=== PATIENT | male | born 1960 | race Caucasian/White ===

== ENCOUNTER 2019-02-14 20:14 | Inpatient (IN) | payer MEDICAID ==
[~2019-02-14] VITALS: Ht 185.4 cm; Wt 63.5 kg
[2019-02-14 20:18] VITALS: BP 113/67
--- NOTE | 2019-02-14 20:21 | NUR ---
TO LOBBY A/W BED AMBULATORY
--- NOTE | 2019-02-14 20:34 | NUR ---
PT AMBULATED TO BED #5.
--- NOTE | 2019-02-14 20:41 | NUR ---
58 Y/O M PRESENTS TO ED WITH C/O ELEVATED BLOOD SUGAR. PT REPORTS FALLIGN ASLEEP AT THE BUS STOP AND WAKING UP FEELING DISORIENTED. +POLYDIPSIA AND POLYURIA. PT DENIES DIZZINESS OR VISUAL CHANGES. PT AAOX4 TO PERSON, PLACE, SITUATION, AND TIME. SPEECH CLEAR AND COMPREHENISBLE. BEHAVIOR IS CALM. PT ATTACHED TO MONITORING SYSTEM. PT BED IN LOWEST POSTION. WILL CONTINUE TO MONITOR.
--- NOTE | 2019-02-14 21:05 | NUR ---
Adis luna in [facility] - 02/14/19 at 2145 by MEDGJ BLOOD DRAWN AND TAKEN TO LAB.
[2019-02-14] MEDS ORDERED: KETOROLAC 30 MG/ML VIAL IVP ONE (21:10)
[2019-02-14] MEDS ORDERED: NACL 0.9% 2,000 ML IV ONE (21:10)
--- NOTE | 2019-02-14 21:25 | NUR ---
BLOOD DRAWN AND TAKEN TO LAB
[2019-02-14 21:34] LABS: BASOPHILS % (AUTO) 0.8 % (0.0-2.0); EOSINOPHILS # (AUTO) 0.1 K/uL (0-0.4); EOSINOPHILS % (AUTO) 2.9 % (0.0-4.0); HEMATOCRIT 35.1 % (36-52); HEMOGLOBIN 11.4 g/dL (12.0-18.0); LYMPHOCYTES % (AUTO) 21.6 % (20.5-51.1); MEAN CORPUSCULAR HEMOGLOBIN 30 pg (27-31); MEAN CORPUSCULAR HGB CONC 32 g/dL (33-37); MEAN CORPUSCULAR VOLUME 91.8 fL (80-94); MONOCYTES # (AUTO) 0.4 K/uL (0.8-1.0); MONOCYTES % (AUTO) 9.6 % (1.7-9.3); NEUTROPHILS # (AUTO) 2.9 K/uL (1.8-7.7); NEUTROPHILS % (AUTO) 65.1 % (42.2-75.2); PLATELET COUNT (AUTO) 282 K/uL (140-450); RED BLOOD CELL COUNT(AUTO) 3.82 MIL/uL (4.20-6.10); WHITE BLOOD COUNT (AUTO) 4.5 K/uL (4.8-10.8)
[2019-02-14 21:55] LABS: ALBUMIN 2.8 g/dL (3.4-5.0); ANION GAP 17.9 (8-16); CARBON DIOXIDE 22.5 mmol/L (21-32); POTASSIUM 4.4 mmol/L (3.5-5.1); TOTAL BILIRUBIN 0.3 mg/dL (0.0-1.0)
[2019-02-14] MEDS ORDERED: INSULIN REGULAR, HUMAN 100 UNIT in NACL 0.9% 100 ML IV ONE ×2 (22:05)
--- NOTE | 2019-02-14 22:08 | NUR ---
PT SEEN WITH EYES CLOSES. VISIBLE CHEST RISE AND FALL NOTED. WILL CONTINUE TO MONITOR.
[2019-02-14] MEDS ORDERED: HUM SUBQ (22:33)
[2019-02-14] MEDS ORDERED: INSU100S22 SUBQ (22:33)
[2019-02-14] MEDS ORDERED: NACL 0.9% 1,000 ML IV SCH (22:53)
[2019-02-14] MEDS ORDERED: ACETAMINOPHEN 325 MG TAB PO PRN (22:55)
[2019-02-14] MEDS ORDERED: DOCUSATE SODIUM 100 MG GELCAP PO PRN (22:55)
[2019-02-14] MEDS ORDERED: ONDANSETRON 4 MG/2 ML VIAL IM/IVP PRN (22:55)
[2019-02-14] MEDS ORDERED: LORazepam 2 MG/ML VIAL IM/IVP PRN (22:55)
[2019-02-14] MEDS ORDERED: ZOLPIDEM 5 MG TAB PO PRN (22:55)
[2019-02-14] MEDS ORDERED: DEXTROSE 50% 50 ML SYR IVP PRN (23:00)
[2019-02-14] MEDS ORDERED: INSULIN REGULAR, HUMAN 100 UNIT in NACL 0.9% 100 ML IV SCH ×2 (23:00)
[2019-02-14] MEDS ORDERED: NACL 0.9% 1,000 ML IV ONE (23:00)
--- NOTE | 2019-02-14 23:14 | NUR ---
Patient will be admitted to care of Dr. Mireles. Admited to ICU. Will go to room 2. Belongings list completed. VSS at time of transport Report to AMADO Mcfarlane. Transfer of care at this time.
[2019-02-14] MEDS ORDERED: VANCOMYCIN PER PHARMACY MC PRN (23:15)
--- NOTE | 2019-02-14 23:20 | NUR ---
PATIENT TRANSFERRED TO ICU BED 2 VIA GURNEY, PATIENT ABLE TO AMBULATE TO BED. WILL FOLLOWUP CARE
[2019-02-14] MEDS: BLOOD GLUCOSE MONITORING 1 DEV DEV FS SCH (23:30)
--- NOTE | 2019-02-14 23:30 | NUR ---
RECEIVED ENDORSEMENT FROM ER NURSE AT BEDSIDE. PATIENT LETHARGIC, GOES IN AND OUT OF ALERT TO LETHARGIC. ABLE TO FOLLOW SOME SIMPLE COMMANDS, OPENS EYES TO VOICE AND PAIN. WITHDRAWS TO PAIN, ANOx3. PATIENT IS ON ROOM AIR, SATURATIONS 96%, HEART RATE 69BPM, BLOOD PRESSURE 115/74, RESPIRATIONS 12. PATIENT DENIES PAIN. RIGHT AC PERIPHERAL IV, 20G, FLUSHED AND PATENT, WITHOUT SYMPTOMS. INSULIN DRIP INFUSING AT 8 UNITS/HR. BLOOD SUGAR AT THIS TIME 552. PATIENT IS AFEBRILE, SKIN WARM AND DRY BUT NOT INTACT. MULTIPLE SMALL PURULENT WOUNDS NOTED ON BILATERAL FOREARMS. CULTURES OBTAINED AND WOUNDS ARE PHOTOGRAPHED AND CHARTED. NONADHESIVE DRESSINGS APPLIED AND KERLIX ROLL IN PLACE. BOWEL SOUNDS ACTIVE, ABDOMEN SOFT AND NONTENDER. PATIENT IS CONTINENT, URINAL AT BEDSIDE. PATIENT ORIENTED TO CALL LIGHT AND TREATMENT PLAN. SIDERAILS UPX3, BED LOCKED AND IN LOW POSITION. WILL FOLLOW UP ON ADMITTING ORDERS
--- NOTE | 2019-02-14 23:45 | NUR ---
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 PATIENT ALSO REFUSED RN TO ASSESS SKIN ON BACK AND SACRUM, NOT ABLE TO ASSESS FOR INJURIES/SKIN BREAKDOWN
[2019-02-14 23:48] LABS: PROTHROMBIN TIME 8.5 secs (10.8-13.4)
[2019-02-14 23:51] LABS: MAGNESIUM 1.7 mg/dL (1.8-2.4); PHOSPHORUS 3.9 mg/dL (2.5-4.9); THYROID STIMULATING HORMONE 0.73 uIU/mL (0.34-3.74)
[2019-02-15] VITALS (12 sets, daily range): BP systolic 99–129; BP diastolic 49–84
--- NOTE | 2019-02-15 00:02 | NUR ---
phone call from after hour pharmacist Lorraine, she wants to verify lantus 30 units order.phone call made to dr ramirez; he said to give lantus 30 units even if pt is on regular insulin drip, pharmacist made aware.
[2019-02-15] MEDS: BLOOD GLUCOSE MONITORING 1 DEV DEV FS SCH ×11 (00:14→20:15)
--- NOTE | 2019-02-15 00:15 | NUR ---
PATIENT EDUCATED ON IMPORTANCE OF STARTING MAINTENANCE IV FLUIDS AND IV ANTIBIOTICS. PATIENT MADE AWARE THAT THE IV LINE ALREADY IN PLACE IS ONLY FOR THE INSULIN DRIP AND CANNOT BE MIXED WITH OTHER FLUIDS OR MEDICATION. RN ATTEMPTS TO START ANOTHER IV LINE AND PATIENT REFUSES, STATES RN CAN TRY INSERTION IN THIRTY MINUTES ONCE PATIENT HAS "RESTED FOR SOME TIME". WILL ATTEMPT IV INSERTION IN 30 MINUTES
[2019-02-15] MEDS: INSULIN LANTUS 100 UNITS/ML 10 ML VIAL SUBQ SCH ×2 (00:29→20:21)
[2019-02-15] MEDS ORDERED: VANCOMYCIN 1,000 MG VIAL ONE (00:40)
--- NOTE | 2019-02-15 00:41 | NUR ---
CALLED PHARMACY TO VERIFY IF POSSIBLE TO SWITCH IV LINE TO Y-PORT OR DOUBLE LUMEN. PHARMACISTS CLARIFIES THAT IT IS NOT OK TO MIX ANY FLUIDS OR MEDICATIONS WITH INSULIN DRIP REGARDLESS OF SEPARATE PORTS. WILL TRY TO START ANOTHER IV ACCESS IF PATIENT ALLOWS
--- NOTE | 2019-02-15 00:44 | NUR ---
UPON ARRIVING AT BEDSIDE AND EXPLAINING THE SIGNIFICANT AND PROCEDURE OF DRAWING ABG TO THE PT, PT TOLD RT TO COME BACK IN 30 MINUTES. WHEN RT RETURNED IN 30 MINUTES AND EXPLAINED THE THE IMPORTANCE OF DRAWING THE ABG, PT REFUSED THE PROCEDURE. RUBÉN SWARTZ WAS NOTIFIED. RNs AT BEDSIDE. PT IS ON ROOM AIR WITH SPO2 OF 96%, HR 67, AND RR 14bpm.
[2019-02-15] MEDS ORDERED: VANCOMYCIN 1GM/DEXT 5% PREMIX 200 ML IV SCH (01:00)
--- NOTE | 2019-02-15 01:07 | NUR ---
bs 360; continue 8 units insulin drip as per dr ramirez.also made aware that pt is refusing ivf and iv antibiotics.
--- NOTE | 2019-02-15 01:10 | NUR ---
ATTEMPTED NEW IV INSERTION, PATIENT REFUSING, PATIENT NOW REFUSING ANY KIND OF TREATMENT. RESIDENT DOCTOR MADE AWARE. RESIDENT DOCTOR AT BEDSIDE TO EXPLAIN THE IMPORTANCE OF FLUIDS AND ANTIBIOTICS, PATIENT IS UNCOOPERATIVE, WILL NOT OPEN EYES, YELLING AT STAFF TO LEAVE HIM ALONE AND DO NOT TOUCH HIM OR GO NEAR HIM WITH ANY KIND OF NEEDLES/EQUIPMENT. PATIENT DOES NOT WANT ANYTHING BUT TO BE LEFT ALONE. INSULIN DRIP STILL INFUSING AT 8 UNITS/HR.
--- NOTE | 2019-02-15 03:10 | NUR ---
bs 159; pt still refusing iv insertion; as per dr ramirez; stop insulin and admin d5 1/2 ns and monitor blood sugar level every hour. called lab to draw bmp. laborer cook house at bedside at this time.
[2019-02-15] MEDS ORDERED: DEXT 5% / NACL 0.45% 1,000 ML IV SCH (03:11)
[2019-02-15 03:39] LABS: ANION GAP 14.3 (8-16); CARBON DIOXIDE 24.4 mmol/L (21-32); CREATININE 0.7 mg/dL (0.7-1.3); POTASSIUM 3.7 mmol/L (3.5-5.1)
[2019-02-15 03:49] LABS: MAGNESIUM 1.4 mg/dL (1.8-2.4); PHOSPHORUS 2.8 mg/dL (2.5-4.9)
[2019-02-15 04:15] LABS: BASOPHILS % (AUTO) 0.8 % (0.0-2.0); EOSINOPHILS # (AUTO) 0.3 K/uL (0-0.4); EOSINOPHILS % (AUTO) 4.5 % (0.0-4.0); HEMATOCRIT 33.8 % (36-52); HEMOGLOBIN 11.5 g/dL (12.0-18.0); LYMPHOCYTES # (AUTO) 1.8 K/uL (2.0-11.5); LYMPHOCYTES % (AUTO) 30.7 % (20.5-51.1); MEAN CORPUSCULAR HEMOGLOBIN 30 pg (27-31); MEAN CORPUSCULAR HGB CONC 34 g/dL (33-37); MEAN CORPUSCULAR VOLUME 88.2 fL (80-94); MONOCYTES # (AUTO) 0.6 K/uL (0.8-1.0); MONOCYTES % (AUTO) 9.8 % (1.7-9.3); NEUTROPHILS # (AUTO) 3.1 K/uL (1.8-7.7); NEUTROPHILS % (AUTO) 54.2 % (42.2-75.2); PLATELET COUNT (AUTO) 311 K/uL (140-450); RED BLOOD CELL COUNT(AUTO) 3.84 MIL/uL (4.20-6.10); RED CELL DISTRIBUTION WIDTH 13.7 % (11.6-13.7); WHITE BLOOD COUNT (AUTO) 5.7 K/uL (4.8-10.8)
--- NOTE | 2019-02-15 04:27 | NUR ---
BLOOD SUGAR 117, PER PROTOCOL TITRATE IV FLUIDS. D5 1/2 NS INFUSING AT 200 ML. ASSESSED FOR PAIN, PATIENT DENIES. WILL CONTINUE TO MONITOR
[2019-02-15] MEDS ORDERED: AMPICILLIN/SULBACTAM 3 GM VIAL ONE (04:40)
[2019-02-15] MEDS: AMPICILLIN/SULBACTAM 3 GM in NACL 0.9% 100 ML IV SCH ×3 (05:18→20:15)
[2019-02-15 05:35] LABS: CHOL/HDL RATIO 2.8 (1-4.5)
[2019-02-15] MEDS ORDERED: VANCOMYCIN 500 MG VIAL PO SCH (06:00)
[2019-02-15] MEDS ORDERED: MAGNESIUM OXIDE 400 MG TAB PO SCH (07:00)
--- NOTE | 2019-02-15 07:30 | NUR ---
RECEIVED PT FROM PM SHIFT RN.CONTACT ISOLATION DUE TO HX : MRSA NARES. BEDSIDE MONITOR SHOWS SB-SR, ( 55S-62S) PT DROWSY BUT ABLE TO FOLLOW COMMANDS. ON RA, NO S/S OF RESPIRATORY DISTRESS NOTED. PT HAS IV TO RIGHT AC RUNNING D5 1/2 NS AT 200 CC/HR. SITE INTACT AND PATENT. PT HAS WOUND TO BOTH UPPER EXTREMITIES WRAPPED WITH GAUZE. INTACT AND CLEAN. CALL LIGHT IN REACH, HOB ELEVATED 30 DEGREES WITH LOW BED POSITION. WILL CONTINUE TO MONITOR.
[2019-02-15] MEDS: NACL 0.9% 1,000 ML IV SCH ×2 (07:35→18:41)
[2019-02-15] MEDS ORDERED: VANCOMYCIN PER PHARMACY MC PRN (07:35)
[2019-02-15] MEDS ORDERED: MAG SULF 2000 MG/WATER PREMIX 100 ML IV ONE (07:50)
--- NOTE | 2019-02-15 07:51 | NUR ---
PATIENT HAS BEEN SCREENED AND CATEGORIZED HIGH NUTRITION RISK. PATIENT WILL BE SEEN WITHIN 1-2 DAYS OF ADMISSION. 02/15/19-02/16/[address]
[2019-02-15] MEDS ORDERED: VANCOMYCIN 1,000 MG in DEXTROSE 5% 250 ML IV ONE (08:30)
[2019-02-15] MEDS ORDERED: VANCOMYCIN 1GM/DEXT 5% PREMIX 200 ML IV ONE (09:00)
--- NOTE | 2019-02-15 09:20 | NUR ---
PT REFUSED INSULIN SLIDING SCALE. PT STATED " I DO NOT NEED IT". RISKS EXPLAINED , PT STILL REFUSED. PT ALSO REFUSED BEDSIDE MONITOR. EXPLAINED TO PT IF HE REFUSED MONITORING, I CAN NOT MONITOR HIS HEART BEAT, PT AGREED BUT PT REFUSED O2 SATS MONITORING.
[2019-02-15] MEDS: INSULIN LISPRO SLIDING SCALE 100 UNITS/ML VIAL SUBQ PRN ×4 (09:21→20:23)
[2019-02-15] MEDS: LACTOBACILLUS RHAMNOSUS GG 1 EACH CAP PO SCH (09:22)
[2019-02-15] MEDS: MORPHINE SULFATE 2 MG/ML SYR IVP PRN ×3 (09:50→20:08)
--- NOTE | 2019-02-15 10:30 | NUR ---
PT VOIDS 400 CC URINE.
--- NOTE | 2019-02-15 11:50 | NUR ---
02/15/19 RD INITIAL ASSESSMENT COMPLETED PLEASE REFER TO NUTRITION ASSESSMENT UNDER CARE ACTIVITY FOR ESTIMATED NUTRITIONAL NEEDS. RD RECOMMENDATIONS: 1. CONTINUE CCHO 60 GM DIET TOLERATED. 2. RECOMMEND ADDING GLUCERNA SHAKE TID TO OPTIMIZE NUTRITION INTAKE. 3. RD WILL F/U 3-5 DAYS; MODERATE RISK. KRYSTLE STEPHENS, RD
--- NOTE | 2019-02-15 12:00 | NUR ---
PT BS 390, NOTIFIED PT I NEED TO GIVE HIM INSULIN SUBQ, PT STATED HE DOES NOT NEED INSULIN. HE CAN JUST DRINK WATER TO DECREASE BS. EXPLAINED TO PT IF HE DOES NOT TAKE INSULIN, HIS BS MAY GO UP TO 400. PT AGREED TO TAKE UNITS 10 UNITS SUBQ.
[2019-02-15] MEDS: HYDROcodone/APAP 5/325 MG 1 TAB TAB PO PRN ×2 (12:05→16:27)
--- NOTE | 2019-02-15 13:40 | NUR ---
TRANSFERRED PT TO TELE 115 . PT AWAKE, ALERT. PT AMBULATE FROM HALLWAY TO HIS ROOM. NOTIFIED AMADO BERRY I DID NOT GIVE PT WOUND DRESSING CHANGE DUE TO PT WANTED TO BE DONE AFTER HE GOT MORPHINE WHICH IS DUE AT 1350.
--- NOTE | 2019-02-15 13:41 | NUR ---
RECEIVED PATIENT TRANSFER FROM ICU AND RECEIVED BEDSIDE REPORT FROM ICU NURSE MARIAM. PATIENT IS AAOX4. RESPIRATION EVEN AND UNLABORED ON RA. NO SIGNS OF DISTRESS NOTED. IV INTACT AND CLEAN, INFUSING PER MD ORDER. DRESSINGS ON BILATERAL ARMS NOTED, CLEAN AND INTACT, PATIENT STATED "I WANT TO CHANGE THEM AFTER I GET MY PAIN MED." APPLIED TELE MONITOR. FALL RISK PROTOCOL IN PLACE AND BED ALARM ACTIVATED. ORIENTED PATIENT TO THE ROOM, ON HOW TO USE THE CALL LIGHT, BED REMOTE, TV, TELEPHONE, AND LIGHTS, PATIENT VERBALIZED UNDERSTANDING. VITAL SIGNS TAKEN. SAFETY MEASURES IN PLACE. BED IN LOW POSITION AND CALL LIGHT WITHIN REACH. INSTRUCTED PATIENT TO USE THE CALL LIGHT FOR ANY ASSISTANCE AND PATIENT WAS AWARE.
--- NOTE | 2019-02-15 13:57 | NUR ---
PATIENT COMPLAINED 10/10 ON HIS ARMS BILATERALLY, ADMINISTERED PRN PAIN MED MORPHINE VIA IVP, MED EDUCATION PROVIDED TO PATIENT AND PATIENT TOLERATED WELL. PATIENT AWAKE AND WATCHING ON BED AT THIS TIME. NO SIGNS OF DISTRESS NOTED. TELE MONITOR ATTACHED. SAFETY MEASURES IN PLACE. BED IN LOW POSITION AND CALL LIGHT WITHIN REACH. INSTRUCTED PATIENT TO USE THE CALL LIGHT FOR ANY ASSISTANCE AND PATIENT WAS AWARE.
--- NOTE | 2019-02-15 14:05 | NUR ---
PROVIDED WOUND CARE ON BILATERAL ARMS. CLEANSED ARMS WITH NS AND PAT DRY. APPLIED ADAPTIC DRESSINGS AND ABD BAND, SECURED WITH KERLIX, PATIENT TOLERATED WELL. WOUND CARE EDUCATION PROVIDED TO PATIENT AND PATIENT VERBALIZED UNDERSTANDING. PATIENT AWAKE AND WATCHING TV ON BED AT THIS TIME. NO SIGNS OF DISTRESS NOTED. TELE MONITOR ATTACHED. SAFETY MEASURES IN PLACE. BED IN LOW POSITION AND CALL LIGHT WITHIN REACH. INSTRUCTED PATIENT TO USE THE CALL LIGHT FOR ANY ASSISTANCE AND PATIENT WAS AWARE.
--- NOTE | 2019-02-15 15:58 | NUR ---
PATIENT IS RESTING ON BED AT THIS TIME. AROUSABLE TO VOICE. NO SIGNS OF DISTRESS NOTED. TELE MONITOR ATTACHED. SAFETY MEASURES IN PLACE. FALL RISK PROTOCOL IN PLACE AND BED ALARM ACTIVATED. BED IN LOW POSITION AND CALL LIGHT WITHIN REACH. INSTRUCTED PATIENT TO USE THE CALL LIGHT FOR ANY ASSISTANCE AND PATIENT WAS AWARE.
--- NOTE | 2019-02-15 16:10 | NUR ---
DURING 1600 VITAL SIGNS ROUND, FOUND PATIENT CHANGED HIMSELF INTO HIS OWN [facility] AND SHORT. PATIENT SAID "I AM WATCHING THE [facility] FOOT[employer]ALL GAME, I HAVE TO BE IN THEIR SHIRT." PATIENT REFUSED TO CHANGED INTO THE HOSPITAL GOWN. PATIENT IS WATCHING TV AT THIS TIME. NO SIGNS OF DISTRESS NOTED. TELE MONITOR ATTACHED. SAFETY MEASURES IN PLACE. BED IN LOW POSITION AND CALL LIGHT WITHIN REACH. INSTRUCTED PATIENT TO USE THE CALL LIGHT FOR ANY ASSISTANCE AND PATIENT WAS AWARE.
--- NOTE | 2019-02-15 16:27 | NUR ---
PATIENT COMPLAINED 6/10 ON HIS ARMS BILATERALLY, HE FEELS RESTLESS, SQUEEZING, AND SEVERE. ADMINISTERED PRN PAIN MED, MED EDUCATION PROVIDED TO PATIENT AND PATIENT TOLERATED WELL. PATIENT AWAKE AND WATCHING ON BED AT THIS TIME. NO SIGNS OF DISTRESS NOTED. TELE MONITOR ATTACHED. SAFETY MEASURES IN PLACE. BED IN LOW POSITION AND CALL LIGHT WITHIN REACH. INSTRUCTED PATIENT TO USE THE CALL LIGHT FOR ANY ASSISTANCE AND PATIENT WAS AWARE.
--- NOTE | 2019-02-15 18:06 | NUR ---
PATIENT RECEIVED HIS DINNER TRAY, ADMINISTERED 6 UNITS OF HUMALOG FOR BLOOD GLUCOSE 293, MED EDUCATION PROVIDED TO PATIENT AND PATIENT VERBALIZED OK. PATIENT TOOK OUT A PILL AND ASKED "CAN YOU TELL ME WHAT KIND OF MEDICATION IS THAT? SOMEONE GAVE IT TO ME ON THE STREET." EXPLAINED TO PATIENT THAT I DONT KNOW WHAT PILL IS IT WITHOUT THE LABEL AND FOR PATIENT'S SAFETY, NO MED BY BEDSIDE. PATIENT WAS AWARE. COLLECTED PILL IN SPECIMEN JAR AND SENT TO PHARMACY. PATIENT IS HAVING DINNER ON BED AT THIS TIME. NO SIGNS OF DISTRESS NOTED. TELE MONITOR ATTACHED. SAFETY MEASURES IN PLACE. BED IN LOW POSITION AND CALL LIGHT WITHIN REACH. INSTRUCTED PATIENT TO USE THE CALL LIGHT FOR ANY ASSISTANCE AND PATIENT WAS AWARE.
--- NOTE | 2019-02-15 19:30 | NUR ---
ENDORSED PATIENT AT BEDSIDE TO SPINDLE CARVER NURSE FOR CONTINUITY OF CARE. PATIENT IS IN STABLE CONDITION. SAFETY MEASURES IN PLACE.
--- NOTE | 2019-02-15 19:31 | NUR ---
RECEIVED BEDSIDE REPORT FROM DAY RN. PATIENT IS AAOX4. RESPIRATION EVEN AND UNLABORED ON RA. NO SIGNS OF DISTRESS NOTED. IV INTACT AND CLEAN, INFUSING PER MD ORDER. DRESSINGS ON BILATERAL ARMS NOTED, CLEAN AND INTACT. FALL RISK PROTOCOL IN PLACE AND BED ALARM ACTIVATED. ORIENTED PATIENT TO THE ROOM, ON HOW TO USE THE CALL LIGHT, BED REMOTE, TV, TELEPHONE, AND LIGHTS, PATIENT VERBALIZED UNDERSTANDING. CONTACT ISOLATION FOR HX MRSA/NARES. SAFETY MEASURES IN PLACE. BED IN LOW POSITION AND CALL LIGHT WITHIN REACH. WILL ROUND FREQUENTLY
[2019-02-15] MEDS: VANCOMYCIN 1,000 MG in NACL 0.9% 250 ML IV SCH (20:15)
--- NOTE | 2019-02-15 20:15 | NUR ---
VITAL SIGNS ARE WITHIN NORMAL LIMITS. ADRIANNA MEDICATIONS GIVEN. BLOOD GLUCOSE 280 LANTUS AND SLIDING SCALE GIVEN PER ORDERS. MORPHINE FOR PAIN GIVEN. ALL SAFETY MEASURES ARE IN PLACE. CALL LIGHT IS WITHIN REACH. WILL ROUND FREQUENTLY
--- NOTE | 2019-02-15 20:30 | NUR ---
PATIENT REMOVED DRESSING OFF BOTH ARMS. ATTEMPT TO CLEAN AND REAPPLY PT REFUSED STATES, "NO ILL CLEAN THEM AND LEAVE OPEN. I DON'T WANT THEM COVERED." EXPLAINED TO PT THEY HAVE BEEN OOZING AND SHOULD BE COVERED D/T HIGH RISK OF INFECTION. PT REFUSED. WILL TRY AGAIN LATER.
--- NOTE | 2019-02-15 22:00 | NUR ---
PATIENT IS REFUSING TELE MONITOR. MD MADE AWARE. EXPLAIN THE REASON HE IS ON TELE MONITOR PT STILL REFUSED WILL TRY AGAIN LATER.
--- NOTE | 2019-02-15 22:30 | NUR ---
PATIENT WALKING AROUND UNIT. EDUCATED ON NEED TO STAY IN ROOM D/T CONTACT ISOLATION AND QUIET TIME PROTOCOL. WALKED PATIENT BACK INTO ROOM. HE VERBALIZED UNDERSTANDING.
[2019-02-16] VITALS: BP 110/84
[2019-02-16] MEDS: MORPHINE SULFATE 2 MG/ML SYR IVP PRN (00:13)
--- NOTE | 2019-02-16 00:13 | NUR ---
VSS, PRN MORPHINE GIVEN FOR EZE ARM PAIN 10/16. BLOOD SUGAR 165 ADMINISTERED HUMALOG PER SLIDING SCALE. CALL LIGHT IS WITHIN REACH. WILL CONTINUE TO MONITOR.
[2019-02-16] MEDS: INSULIN LISPRO SLIDING SCALE 100 UNITS/ML VIAL SUBQ PRN ×2 (00:28→21:33)
[2019-02-16] MEDS: BLOOD GLUCOSE MONITORING 1 DEV DEV FS SCH ×6 (00:33→20:00)
--- NOTE | 2019-02-16 01:02 | NUR ---
PT REFUSED WOUND CARE. EDUCATED PT TO KEEP WOUND CLEAN AND DRY VERBALIZED UNDERSTANDING. STATES, " I WANT THEM TO BREATH." PT REFUSING DRESSING. WOUNDS ARE CLEAN PROVIDED NS, GAUZE AND KERLIX AT BEDSIDE. WILL TRY AGAIN LATER.
[2019-02-16] MEDS: HYDROcodone/APAP 5/325 MG 1 TAB TAB PO PRN (02:58)
--- NOTE | 2019-02-16 03:14 | NUR ---
BLOOD SUGAR IS 71 SNACK AT BEDSIDE. NORCO GIVEN PRN. PATIENT REMOVED IV EDUCATED ON IMPORTANCE OF IV FOR IV ANTIBIOTICS. STATES HE DOES NOT NEED IF I KEEP INSISTING HE WILL LEAVE AMA. DOCTOR RON MADE AWARE. CALL LIGHT IS WITHIN REACH.
[2019-02-16 04:00] VITALS: BP 138/77
--- NOTE | 2019-02-16 04:00 | NUR ---
VITAL SIGNS ARE WITHIN NORMAL LIMITS. SAFETY MEASURES ARE IN PLACE.
[2019-02-16] MEDS: AMPICILLIN/SULBACTAM 3 GM in NACL 0.9% 100 ML IV SCH ×3 (04:01→21:00)
[2019-02-16] MEDS: NACL 0.9% 1,000 ML IV SCH ×2 (04:01→21:00)
--- NOTE | 2019-02-16 05:18 | NUR ---
PT STATES FEELS BLOOD SUGAR IS LOW. CHECKED 89. LEFT SNACK AT BEDSIDE. CALL LIGHT IS WITHIN REACH. WILL CONTINUE TO MONITOR
--- NOTE | 2019-02-16 06:40 | NUR ---
SECURITY WAS CALLED TO SEARCH PATIENTS BELONGINGS FOR TELE MONITOR. TELE BOX FOUND IN HIS BAG RETURN TO PRORATION CLERK.
--- NOTE | 2019-02-16 07:18 | NUR ---
GAVE BEDSIDE REPORT TO DAY RN. PT ENDORSED IN STABLE CONDITION.
--- NOTE | 2019-02-16 07:19 | NUR ---
Received report from medical imaging technician nurse. Pt is in bed in stable condition. Call light in reach.
[2019-02-16 08:00] VITALS: BP 138/88
[2019-02-16] MEDS: VANCOMYCIN 1,000 MG in NACL 0.9% 250 ML IV SCH ×2 (08:00→20:00)
--- NOTE | 2019-02-16 08:20 | NUR ---
Pt is repeatedly requesting dixon and sausage for breakfast. Pt says he wont eat unless he gets his dixon and sausage. Reported to charge nurse. Pt's blood sugar at 0800 was 70. Told patient that his diet was calculated as per his needs. Pt said he does not want any medications, and does not want any doctor or nurse in his room. Pt refused his medication. Pt refused vitals signs except blood pressure. Pt does not want any IV line.
[2019-02-16] MEDS: LACTOBACILLUS RHAMNOSUS GG 1 EACH CAP PO SCH (08:24)
--- NOTE | 2019-02-16 10:40 | NUR ---
Went to check on patient. As per EVS he was smoking in bathroom. Security was by his room. Security took away his cigar. Pt called law enforcement and complained that we are illegally searching his belongings without a search warrant. Security was in room when patient called police. Pt was also complaining that he was not given and pain medication. Pt said that he does not want anyone in the room. Pt is aggressive.
[2019-02-16 12:00] VITALS: BP 140/86
--- NOTE | 2019-02-16 12:00 | NUR ---
Pt's blood glucose was noted at 379. Pt refused insulin. Notified . Addendum: 02/16/19 at 1309 by Dave Johns RN Informed pt the risks and benefits of taking and not taking medication.
--- NOTE | 2019-02-16 14:45 | NUR ---
Checked patient in his room. Pt applied unknown solution to both hands. Solution was dark brown in color. Pt refused to answer any questions. Pt requested coffee but pt's blood sugar at 1200. Reported to warehouse packer. ordnance truck installation supervisor checked with patient. Pt refused to answer any questions.
--- NOTE | 2019-02-16 16:00 | NUR ---
Pt refused to take is vital signs and blood sugar check. Notified patient on the benefits and risks of not taking his vital signs and blood sugar meds. Charge nurse and Dr Judd notified.
--- NOTE | 2019-02-16 18:24 | NUR ---
Pt is in room sitting in bed and eating his dinner. Requested patient to check his blood pressure and blood sugar. Patient once again refused. Pt requested that he be left alone. Pt has unknown brown solution by bedside. Pt refused all interventions today. Tried to explain risks and benefits of taking and not taking medications. Pt refused to talk or communicate. Dr Judd notified.
--- NOTE | 2019-02-16 19:27 | NUR ---
Shift report given to manufacturing inspector report. Pt was lying in bed. Call light in reach.
--- NOTE | 2019-02-16 19:28 | NUR ---
RECEIVED BEDSIDE REPORT FROM DAY SHIFT NURSE. RESPIRATION EVEN AND UNLABORED ON RA. NO SIGNS OF DISTRESS NOTED. NO IV SITE NOTED. PT REFUSED IV START. DRESSINGS ON BILATERAL ARMS NOTED, PT NOT ALLOW TO ASSESS. PT AMBULATORY, CONTACT ISOLATION FOR HX MRSA/NARES. SAFETY MEASURES IN PLACE. BED IN LOW POSITION AND CALL LIGHT WITHIN REACH. WILL ROUND FREQUENTLY
[2019-02-16 20:00] VITALS: BP 91/47
--- NOTE | 2019-02-16 20:30 | NUR ---
BS CHECKED, 330. WILL ADMINISTER INSULIN. Addendum: 02/16/19 at 2315 by Reyna Hays RN FOUND BEER BOTTLE IN RESTROOM, FOUND CHEWABLE TOBACCO, AND CONTAINER WITH UNKNOWN TABLETS. TOOK PICTURE AND REPORT DR. VELASQUEZ AND CHARGE NURSE, NAJMA. GIVEN ALL TO SECURITY. PT SLEEPING DEEP BUT AROUSABLE WHEN WAKING HIM UP.
[2019-02-16] MEDS: INSULIN LANTUS 100 UNITS/ML 10 ML VIAL SUBQ SCH (21:00)
--- NOTE | 2019-02-16 21:33 | NUR ---
GIVEN HUMALOG BASED ON SLIDING SCALE. PT REFUSED LANTUS, VANCOMYCIN, UNASYN, IV FLUID, AND IV START. EXPLAINED BENEFIT AND RISK 3TIMES, PT STILL REFUSED.
[2019-02-17] VITALS: BP 91/47
[2019-02-17] MEDS: BLOOD GLUCOSE MONITORING 1 DEV DEV FS SCH ×2 (00:10→04:00)
--- NOTE | 2019-02-17 00:15 | NUR ---
VS CHECKED, BP 91/47, BS CHECKED TWICE [address] VELASQUEZ AND GIVEN 2 PACKS OF ORANGE JUICE ORDERED D/T PT DOES NOT HAVE IV LINE AND REFUSED IV START. WILL MONITOR AGAIN.
--- NOTE | 2019-02-17 01:00 | NUR ---
LAB CALLED FOR MRSA AND URINE SAMPLE. PT REFUSED. RECHECKED BS, 95. PT IN STABLE CONDITION.
--- NOTE | 2019-02-17 02:30 | NUR ---
PT SLEEPING IN BED. NO ACUTE DISTRESS NOTED.
--- NOTE | 2019-02-17 04:00 | NUR ---
PT TAKING A SHOWER, TOLD PT IT IS TIME TO CHECK BS. PT STATES HE WILL BE STAY IN THERE FOR A WHILE.
--- NOTE | 2019-02-17 04:25 | NUR ---
PT IS DONE WITH SHOWER. PT REFUSED BS CHECK. EXPLAINED BENEFIT AND RISK 3 TIMES, PT STILL REFUSED.
[2019-02-17] MEDS: AMPICILLIN/SULBACTAM 3 GM in NACL 0.9% 100 ML IV SCH (05:00)
--- NOTE | 2019-02-17 05:26 | NUR ---
PT REFUSE UNASYN. EXPLAIN BENEFIT AND RISK 3TIMES, PT STILL REFUSED.
--- NOTE | 2019-02-17 07:05 | NUR ---
ENDORSED PT TO DAY SHIFT NURSE, PT IN STABLE CONDITION.
--- NOTE | 2019-02-17 07:20 | NUR ---
RECEIVED BEDSIDE REPORT FROM PM RN PT AWAKE STANDING AT BATHROOM SINK. PT APPEARS STABLE AND IN NO APPARENT DISTRESS. ALL SAFETY MEASURES ARE IN PLACE WILL CONTINUE TO MONITOR
[2019-02-17] MEDS ORDERED: INSU100S45 SUBQ (07:43)
[2019-02-17 08:00] VITALS: BP 137/73
--- NOTE | 2019-02-17 08:00 | NUR ---
PT REQUESTING CIGAR AND REQUESTING TO SPEAK WITH JEF AZAR VISOR. INFORMED JOHN FUCHSSHOP SUPERVISOR HE SPOKE WITH PT ABOUT HIS PLAN FOR DISCHARGE TODAY. AND PT WAS NOT HAPPY WITH THE PLAN CONSIDERING IT IS A HOLIDAY
--- NOTE | 2019-02-17 08:22 | NUR ---
ENTERED PT ROOM PT STATED HE CHANGED HIS MIND AND HE IS OK WITH HIS DISCHARGE TODAY IT WILL JUST TAKE SOME TIME TO ARRANGE FOR HIS FAMILY TO PICK HIM UP
--- NOTE | 2019-02-17 08:30 | NUR ---
WENT TO PT ROOM TO CHECK FINGERSTICK GLUCOSE PT IS REFUSING, EDUCATED PT ON THE IMPORTANCE OF CHECKING BLOOD SUGAR PT STILL REFUSED. WILL CONTINUE TO MONITOR
--- NOTE | 2019-02-17 09:14 | NUR ---
SPOKE WITH [facility] NO VANCO GIVEN PT ONLY RECEIVED 1 DOSE OF VANCO ON 02/15 AT NIGHT. PT IS REFUSING IV PT IS REFUSING ALL MEDICATIONS
[2019-02-17 09:17] VITALS: BP 137/73
--- NOTE | 2019-02-17 10:32 | NUR ---
PT. REFUSES SKIN ASSESSMENT ONLY SHOWS BOTH FOREARMS WITH MULTIPLE DRY ABRASIONS AND SOME SCABS ARE PEELING OFF, WOUND CARE NURSE GIVES RECOMMENDATION TO PAINT WITH BETADINE SOLUTION BID AND LEAVE AREA DRY. PT. AGREES WITH IT. PRIMARY RN NOTIFIED.
--- NOTE | 2019-02-17 10:55 | NUR ---
REVIEWED DISCHARGE INSTRUCTIONS WITH PT. ANSWERED ALL PATIENTS QUESTIONS GAVE HIM SOME WOUND CARE SUPPLIES. GAVE PT PAPER PRESCRIPTION FOR INSULIN. PT REFUSED WOUND CARE PHOTOS. PT AMBULATED OFF THE UNIT PT LEFT ALL HIS PERSONAL BELONGINGS. CALLED SECURITY TO HAVE THEM TAKE PATIENTS BELONGINGS Addendum: 02/17/19 at 1101 by Carolyn Pederson RN PT STATED HE WAS GOING HOME TO STAY AT HIS SISTERS.
--- NOTE | 2019-02-17 11:18 | NUR ---
Drawer In Hand Note: SW attempted to conduct assessment with Tire Recapper present. Patient had left the unit after being discharged. Patient left belongings in room. Per previous note, patient had left unit to stay with sister. Patient's belongings will be collected by security for patient to continuous pickling line pickler at front lobby. No further needs identified.
[2019-02-17] MEDS ORDERED: GAUZE TP SCH (13:00)
== END 2019-02-17 10:35 | disposition home or self-care (01) | DRG 420 ==
LOC: MED 20:14 → MIC 22:27 → UNDOADMIN 22:27 → MIC 02-15 10:21 → MTU 02-15 13:35
PROVIDERS: ADMIT General Practice; ATTEND General Practice
DX: E11.10 Type 2 diabetes mellitus with ketoacidosis without coma (principal); G93.40 Encephalopathy, unspecified; E43 Unspecified severe protein-calorie malnutrition; L03.115 Cellulitis of right lower limb; E83.42 Hypomagnesemia; L03.116 Cellulitis of left lower limb; E87.1 Hypo-osmolality and hyponatremia; I10 Essential (primary) hypertension; F17.210 Nicotine dependence, cigarettes, uncomplicated; E11.65 Type 2 diabetes mellitus with hyperglycemia; F10.239 Alcohol dependence with withdrawal, unspecified; Y90.9 Presence of alcohol in blood, level not specified; X58.XXXA Exposure to other specified factors, initial encounter; S80.812A Abrasion, left lower leg, initial encounter; S80.811A Abrasion, right lower leg, initial encounter; E78.1 Pure hyperglyceridemia; Z53.29 Procedure and treatment not carried out because of patient's decision for other reasons; Z68.1 Body mass index [BMI] 19.9 or less, adult; Z59.0 Homelessness; Y93.89 Activity, other specified; Y92.89 Other specified places as the place of occurrence of the external cause; Y99.8 Other external cause status; Z91.19 Patient's noncompliance with other medical treatment and regimen
CPT/HCPCS: 36415; 71045; 80048; 80053; 82948; 83036; 83690; 83735; 83880; 84100; 84134; 84443; 85025; 85610; 85730; 87070; 87186; 93005; 96361; 96374; 99291; G0482; J0295; J1815; J1885; J2270; J3370; J3475; J7030; J7060; Q0092